=== PATIENT | male | born 1955 | race Caucasian/White ===

== ENCOUNTER 2019-08-01 21:44 | Emergency (ER) | payer MEDICARE, OTHER ==
[~2019-08-01] VITALS: Ht 167.6 cm; Wt 91.0 kg
[~2019-08-01 21:44] MED LIST: ALBU6.7H9 INH; ASPI-1265 PO; ATOR40TA PO; CARB200T2 PO; ESOM40CA49 PO; EZET10TA6 PO; FENO145T38 PO; METO-292 PO
[2019-08-01 21:46] VITALS: BP 158/81
[2019-08-01] MEDS ORDERED: COLC0.6T69 PO (22:26)
[2019-08-01] MEDS ORDERED: CEPH500C5 PO (22:26)
== END 2019-08-01 22:38 | disposition home or self-care (01) ==
LOC: ER 21:45
DX: M79.671 Pain in right foot (principal); J44.9 Chronic obstructive pulmonary disease, unspecified; Z86.69 Personal history of other diseases of the nervous system and sense organs; Z98.890 Other specified postprocedural states; Z79.82 Long term (current) use of aspirin; Z79.899 Other long term (current) drug therapy
CPT/HCPCS: 73630; 99283

== ENCOUNTER 2019-08-05 16:26 | Emergency (ER) | payer MEDICARE, OTHER ==
[~2019-08-05] VITALS: Ht 167.6 cm; Wt 91.0 kg
[~2019-08-05 16:26] MED LIST changes: +CEPH500C5 PO; +COLC0.6T69 PO; +LIDOcaine 1% w/EPI 1:100,000 30ml vial (MDV) ONE
[2019-08-05 16:45] VITALS: BP 172/98
[2019-08-05] MEDS ORDERED: SULF1TAB49 PO (17:22)
== END 2019-08-05 18:05 | disposition home or self-care (01) ==
LOC: ER 16:29
DX: L02.611 Cutaneous abscess of right foot (principal); L03.115 Cellulitis of right lower limb; J44.9 Chronic obstructive pulmonary disease, unspecified; Z86.69 Personal history of other diseases of the nervous system and sense organs; Z79.82 Long term (current) use of aspirin; Z79.899 Other long term (current) drug therapy
CPT/HCPCS: 10060; 99283

== ENCOUNTER 2024-02-02 03:21 | Emergency (ER) | payer MEDICARE, OTHER ==
[~2024-02-02] VITALS: Ht 167.6 cm; Wt 77.8 kg
[~2024-02-02 03:21] MED LIST changes: +ALBU6.7H14 INH; -ALBU6.7H9 INH; -CEPH500C5 PO; -COLC0.6T69 PO; +COLC0.6T72 PO; -LIDOcaine 1% w/EPI 1:100,000 30ml vial (MDV) ONE
[2024-02-02] MEDS ORDERED: sulfamethoxazole/trimethoprim SS (400mg/80mg) tab (single-strength) PO ONE (03:45)
[2024-02-02] MEDS: sulfamethoxazole/trimethoprim DS (800/160mg) tablet PO ONE (03:57)
[2024-02-02] MEDS: predniSONE 20 mg tablet PO ONE (03:59)
[2024-02-02] MEDS ORDERED: CEPH-585 PO (04:13)
[2024-02-02] MEDS ORDERED: ALBU8HFA INH (04:13)
[2024-02-02] MEDS ORDERED: PRED50TA PO (04:13)
[2024-02-02] MEDS ORDERED: SULF1TAB49 PO (04:13)
[2024-02-02] MEDS ORDERED: ALB0.5UD NEB (04:13)
[2024-02-02] MEDS: ipratropium/albuterol 3ml nebule NEB ONE (04:34)
[2024-02-02 04:36] VITALS: PULSE 85; RESP 16; O2SAT 96
[2024-02-02 04:41] VITALS: PULSE 89; RESP 18; O2SAT 96
[2024-02-02] MEDS ORDERED: HYDR-3965 PO (04:44)
[2024-02-02] MEDS: HYDROcodone/acetaminophen 5mg/325mg tablet PO ONE (05:00)
[2024-02-02 05:15] VITALS: BP 132/76; PULSE 78; RESP 16; TEMP 97.9; O2SAT 99
== END 2024-02-02 05:17 | disposition home or self-care (01) ==
LOC: ER 03:22
DX: J44.1 Chronic obstructive pulmonary disease with (acute) exacerbation (principal); M70.21 Olecranon bursitis, right elbow; Z79.899 Other long term (current) drug therapy; Z79.52 Long term (current) use of systemic steroids; Z79.2 Long term (current) use of antibiotics; Y93.89 Activity, other specified
CPT/HCPCS: 94640; 99284; J7512; Z7610

== ENCOUNTER 2024-04-13 19:00 | Emergency (ER) | payer MEDICARE, OTHER ==
[~2024-04-13] VITALS: Ht 167.6 cm; Wt 77.7 kg
[~2024-04-13 19:00] MED LIST changes: +PRED50TA PO
[2024-04-13 19:09] VITALS: BP 143/81; PULSE 89; O2SAT 95
[2024-04-13] MEDS: LIDOcaine 1% W/epiNEPHrine 1:100,000 20ml vial SQ ONE (20:43)
[2024-04-13 20:50] VITALS: RESP 16
[2024-04-13] MEDS: ketorolac trometh 15mg/ml vial 15 MG/ML ML IM ONE (20:50)
[2024-04-13] MEDS: HYDROcodone/acetaminophen 10/325mg tab PO ONE (20:50)
[2024-04-13] MEDS ORDERED: HYDR-3965 PO (20:57)
[2024-04-13 21:03] VITALS: TEMP 98.2
== END 2024-04-13 21:07 | disposition home or self-care (01) ==
LOC: ER 19:00
DX: M70.21 Olecranon bursitis, right elbow (principal); J44.9 Chronic obstructive pulmonary disease, unspecified; Z79.82 Long term (current) use of aspirin; Z79.899 Other long term (current) drug therapy; Y93.89 Activity, other specified
CPT/HCPCS: 20605; 96372; 99283; J1885; Z7610

== ENCOUNTER 2024-07-17 08:08 | Inpatient (IN) | payer MEDICARE, OTHER ==
[2024-07-17] VITALS (7 sets, daily range): BP systolic 139–162; BP diastolic 79–86; PULSE 72–93; RESP 16–20; TEMP 97.7–98.8; O2SAT 93–99
[~2024-07-17] VITALS: Ht 167.6 cm; Wt 83.2 kg
[2024-07-17 08:41] LABS: BASOPHILS # (AUTO) 0.1 X10'3 (0-0.2); BASOPHILS % (AUTO) 0.9 % (0-1); EOSINOPHILS # (AUTO) 0.3 X10'3 (0-0.9); EOSINOPHILS % (AUTO) 4.7 % (0-6); HEMOGLOBIN 15.5 g/dl (14.0-17.9); LYMPHOCYTES # (AUTO) 1.5 X10'3 (1.1-4.8); LYMPHOCYTES % (AUTO) 22.1 % (21-51); MEAN CORPUSCULAR HEMOGLOBIN 31.6 PG (27.0-31.0); MEAN CORPUSCULAR HGB CONC 33.8 g/dL (33.0-36.5); MEAN CORPUSCULAR VOLUME 93.7 FL (78-98); MEAN PLATELET VOLUME 7.1 FL (7.4-10.4); MONOCYTES # (AUTO) 0.6 X10'3 (0-0.9); MONOCYTES % (AUTO) 8.4 % (2-12); NEUTROPHILS # (AUTO) 4.4 X10'3 (1.8-7.7); NEUTROPHILS % (AUTO) 63.9 % (42-75); PLATELET COUNT 281 X10'3 (140-440); RED BLOOD COUNT 4.91 X10'6 (4.70-6.10); RED CELL DISTRIBUTION WIDTH 14.8 % (11.5-14.5); WHITE BLOOD COUNT 6.8 X10'3 (4.5-11.0)
[2024-07-17] MEDS ORDERED: methylPREDNISolone sod succ/PF 40mg inj. IV STA (08:49)
[2024-07-17 08:56] LABS: ALANINE AMINOTRANSFERASE 34 U/L (12-78); ALBUMIN 3.3 G/DL (3.4-5.0); ALBUMIN/GLOBULIN RATIO 0.8 (1.1-1.5); ALKALINE PHOSPHATASE 67 IU/L (46-116); ANION GAP 7 (8-16); ASPARTATE AMINO TRANSFERASE 27 U/L (10-37); BILIRUBIN,TOTAL 0.2 MG/DL (0.1-1.0); BLOOD UREA NITROGEN 19 MG/DL (7-18); CALCIUM 9.1 MG/DL (8.5-10.1); CHLORIDE 106 MMOL/L (99-107); CREATININE 0.76 MG/DL (0.60-1.10); GLUCOSE 124 MG/DL (70-104); POTASSIUM 3.9 MMOL/L (3.5-5.1); SODIUM 141 MMOL/L (135-145); TOTAL CARBON DIOXIDE 27.9 MMOL/L (24-32); TOTAL PROTEIN 7.3 G/DL (6.4-8.2); eCRCL 84 ML/MIN; eGFR > 90 ML/MIN
[2024-07-17] MEDS ORDERED: METHYLPREDNISOLONE SOD SUCC 125 MG/2ML INJ. IV STA (08:56)
[2024-07-17] MEDS: methylPREDNISolone sod succ 125mg/2ml vial IV STA (09:04)
[2024-07-17 09:05] LABS: PRO BRAIN NATRIURETIC PEPTIDE 333 PG/ML (0-125)
[2024-07-17] MEDS: ipratropium/albuterol 3ml nebule NEB ONE (09:08)
[2024-07-17] MEDS: CefTRIAXone/D5W-Rocephin 1gm 50 ML IV ONE (09:44)
[2024-07-17] MEDS: albuterol 2.5 MG/3 ML nebule NEB ONE (09:52)
[2024-07-17] MEDS ORDERED: OLME40TA18 PO (09:55)
[2024-07-17] MEDS: azithromycin/NS 500mg/250ml 250 ML IV ONE (10:12)
[2024-07-17] MEDS ORDERED: mag hydrox/Alum hydrox/simeth 30ml oral suspension PO PRN ×2 (10:30→12:55)
[2024-07-17] MEDS ORDERED: acetaminophen 325mg tablet PO PRN ×2 (12:55)
[2024-07-17] MEDS ORDERED: diphenhydrAMINE 25mg capsule PO PRN (12:55)
[2024-07-17] MEDS ORDERED: acetaminophen 650mg rectal suppository RC PRN (12:55)
[2024-07-17] MEDS ORDERED: morphine 2 MG/ML inj. syringe IV PRN ×2 (12:55)
[2024-07-17] MEDS ORDERED: diphenhydrAMINE 50 mg/ml inj IV PRN (12:55)
[2024-07-17] MEDS ORDERED: ondansetron/PF 4mg/2ml inj IV PRN (12:55)
[2024-07-17] MEDS ORDERED: bisacodyl 10mg suppository rectal RC PRN (12:55)
[2024-07-17] MEDS ORDERED: magnesium hydroxide 30ml (MOM) UD suspension PO PRN (12:55)
[2024-07-17] MEDS ORDERED: HYDROcodone/acetaminophen 5mg/325mg tablet PO PRN (12:55)
[2024-07-17] MEDS ORDERED: HYDROcodone/acetaminophen 10/325mg tab PO PRN (12:55)
[2024-07-17] MEDS ORDERED: ondansetron 4mg rapidly disintigrating tab PO PRN (12:55)
[2024-07-17] MEDS: normal saline 1000ml 1,000 ML IV SCH (13:13)
[2024-07-17 13:34] LABS: BILIRUBIN,URINE NEGATIVE (Neg); CLARITY,URINE CLEAR (Clear); COLOR,URINE YELLOW (Yellow); GLUCOSE, URINE 500 mg/dl (Neg); KETONES,URINE NEGATIVE (Neg); LEUKOCYTE ESTERASE ,URINE NEGATIVE (Neg); NITRITES, URINE NEGATIVE (Neg); OCCULT BLOOD,URINE NEGATIVE (Neg); PROTEIN,URINE NEGATIVE (Neg); UROBILINOGEN,URINE 0.2 E.U/dL (0.2-1.0)
[2024-07-17 13:38] LABS: UA COLLECTION TYPE CLN CATCH MIDSTREAM
[2024-07-17 13:45] LABS: URINE AMPHETAMINE SCREEN NEGATIVE (Neg); URINE BARBITUATE SCREEN NEGATIVE (Neg); URINE BENZODIAZEPINES SCREEN NEGATIVE (Neg); URINE CANNABINOID SCREEN NEGATIVE (Neg); URINE COCAINE SCREEN NEGATIVE (Neg); URINE METHADONE SCREEN NEGATIVE (Neg); URINE OPIATE SCREEN NEGATIVE (Neg); URINE PHENCYCLIDINE SCREEN NEGATIVE (Neg)
[2024-07-17 14:56] LABS: HEMOGLOBIN A1C 6.1 % (4.5-6.2)
[2024-07-17 15:28] LABS: APTT 26 SECONDS (22-32); D-DIMER < 0.19 MG/L FEU (0-0.50); PROTHROMBIN TIME 10.7 SECONDS (9.0-12.0)
[2024-07-17 15:44] LABS: CARBAMAZEPINE (TEGRETOL) 7.3 UG/ML (4.0-12.0); MAGNESIUM 1.7 MG/DL (1.5-2.4); PHOSPHORUS 2.5 MG/DL (2.3-4.5); THYROID STIMULATING HORMONE 0.63 ulU/ml (0.34-4.50)
[2024-07-17] MEDS: methylPREDNISolone sod succ 125mg/2ml vial IV ONE (15:57)
[2024-07-17] MEDS ORDERED: TIOT4MIS8 INH (19:11)
[2024-07-17] MEDS: K and/or MAG REPLACEMENT MC SCH (19:29)
[2024-07-17] MEDS: docusate sod 100mg capsule PO SCH (20:13)
[2024-07-17] MEDS: heparin, porcine 5000 units/ml vial SQ SCH (20:14)
[2024-07-17] MEDS ORDERED: temazepam 15mg capsule PO PRN (21:00)
[2024-07-18] VITALS (7 sets, daily range): BP systolic 142–148; BP diastolic 80–81; PULSE 65–79; RESP 14–21; TEMP 97.6–98; O2SAT 95–98
[2024-07-18 00:09] LABS: BASOPHILS % (AUTO) 0.5 % (0-1); EOSINOPHILS % (AUTO) 0.1 % (0-6); HEMATOCRIT 41.7 % (42.0-52.0); HEMOGLOBIN 14.2 g/dl (14.0-17.9); LYMPHOCYTES # (AUTO) 1.4 X10'3 (1.1-4.8); LYMPHOCYTES % (AUTO) 19.1 % (21-51); MEAN CORPUSCULAR HEMOGLOBIN 31.6 PG (27.0-31.0); MEAN CORPUSCULAR HGB CONC 34.1 g/dL (33.0-36.5); MEAN CORPUSCULAR VOLUME 92.9 FL (78-98); MEAN PLATELET VOLUME 7.4 FL (7.4-10.4); MONOCYTES # (AUTO) 0.5 X10'3 (0-0.9); MONOCYTES % (AUTO) 7.2 % (2-12); NEUTROPHILS # (AUTO) 5.5 X10'3 (1.8-7.7); NEUTROPHILS % (AUTO) 73.1 % (42-75); PLATELET COUNT 257 X10'3 (140-440); RED BLOOD COUNT 4.49 X10'6 (4.70-6.10); RED CELL DISTRIBUTION WIDTH 14.5 % (11.5-14.5); WHITE BLOOD COUNT 7.5 X10'3 (4.5-11.0)
[2024-07-18] MEDS: ipratropium/albuterol 3ml nebule NEB PRN (00:39)
[2024-07-18 01:52] LABS: BASOPHILS # (AUTO) 0.1 X10'3 (0-0.2); BASOPHILS % (AUTO) 0.8 % (0-1); EOSINOPHILS % (AUTO) 0.2 % (0-6); HEMOGLOBIN 14.3 g/dl (14.0-17.9); LYMPHOCYTES # (AUTO) 1.7 X10'3 (1.1-4.8); LYMPHOCYTES % (AUTO) 23.5 % (21-51); MEAN CORPUSCULAR HEMOGLOBIN 31.7 PG (27.0-31.0); MEAN CORPUSCULAR HGB CONC 34.1 g/dL (33.0-36.5); MEAN CORPUSCULAR VOLUME 92.9 FL (78-98); MEAN PLATELET VOLUME 7.4 FL (7.4-10.4); MONOCYTES # (AUTO) 0.8 X10'3 (0-0.9); MONOCYTES % (AUTO) 10.8 % (2-12); NEUTROPHILS # (AUTO) 4.7 X10'3 (1.8-7.7); NEUTROPHILS % (AUTO) 64.7 % (42-75); PLATELET COUNT 274 X10'3 (140-440); RED BLOOD COUNT 4.52 X10'6 (4.70-6.10); RED CELL DISTRIBUTION WIDTH 14.5 % (11.5-14.5); WHITE BLOOD COUNT 7.3 X10'3 (4.5-11.0)
[2024-07-18 02:19] LABS: ALANINE AMINOTRANSFERASE 33 U/L (12-78); ALBUMIN/GLOBULIN RATIO 0.8 (1.1-1.5); ALKALINE PHOSPHATASE 62 IU/L (46-116); ANION GAP 5 (8-16); ASPARTATE AMINO TRANSFERASE 24 U/L (10-37); BILIRUBIN,TOTAL 0.2 MG/DL (0.1-1.0); BLOOD UREA NITROGEN 17 MG/DL (7-18); CALCIUM 8.5 MG/DL (8.5-10.1); CHLORIDE 107 MMOL/L (99-107); CREATININE 0.68 MG/DL (0.60-1.10); GLUCOSE 127 MG/DL (70-104); POTASSIUM 3.6 MMOL/L (3.5-5.1); SODIUM 140 MMOL/L (135-145); TOTAL CARBON DIOXIDE 28.5 MMOL/L (24-32); TOTAL PROTEIN 6.6 G/DL (6.4-8.2); eCRCL 94 ML/MIN; eGFR > 90 ML/MIN
[2024-07-18 02:21] LABS: CHOLESTEROL 122 MG/DL (0-200); HDL CHOLESTEROL 62 MG/DL (35-60); LDL CHOLESTEROL 64 MG/DL (50-100); TRIGLYCERIDES 136 MG/DL (20-135)
[2024-07-18] MEDS: TIOTROPIUM IH SCH (08:00)
[2024-07-18] MEDS: OLODATEROL IH SCH (08:00)
[2024-07-18] MEDS: losartan 50mg tablet PO SCH (08:00)
[2024-07-18] MEDS: [UNRECOGNIZED DRUG - OTHER] IH SCH (08:00)
[2024-07-18] MEDS: pantoprazole 40mg Tablet.DR PO SCH (09:12)
[2024-07-18] MEDS: ezetimibe 10mg tablet PO SCH (09:13)
[2024-07-18] MEDS: aspirin 81mg tab.chew PO SCH (09:13)
[2024-07-18] MEDS: fenofibrate 145mg tablet PO SCH (09:14)
[2024-07-18] MEDS: atorvastatin 20mg tablet PO SCH (09:14)
[2024-07-18] MEDS: CefTRIAXone/D5W-Rocephin 1gm 50 ML IV SCH (09:16)
[2024-07-18] MEDS: nicotine 21mg patch - 24 hr TD SCH (09:17)
[2024-07-18] MEDS: azithromycin/NS 500mg/250ml 250 ML IV SCH (10:00)
[2024-07-18] MEDS: carBAMazepine Ext. Release 200 MG TAB.ER.12H PO SCH (10:00)
[2024-07-18] MEDS ORDERED: AZIT500T PO (13:45)
[2024-07-18] MEDS ORDERED: PRED10TA23 PO (13:45)
== END 2024-07-18 14:50 | disposition home or self-care (01) | DRG 202 ==
LOC: ER 08:08 → ED HOLD 10:28 → SUR 3N 13:54
PROVIDERS: ADMIT Family Medicine; ATTEND Family Medicine
DX: J20.9 Acute bronchitis, unspecified (principal); J44.0 Chronic obstructive pulmonary disease with (acute) lower respiratory infection; J44.1 Chronic obstructive pulmonary disease with (acute) exacerbation; I10 Essential (primary) hypertension; E78.5 Hyperlipidemia, unspecified; G40.909 Epilepsy, unspecified, not intractable, without status epilepticus; G47.33 Obstructive sleep apnea (adult) (pediatric); Z79.82 Long term (current) use of aspirin; Z79.899 Other long term (current) drug therapy; Z72.0 Tobacco use
CPT/HCPCS: 36415; 71046; 80053; 80061; 80156; 80305; 81003; 83036; 83605; 83735; 83880; 84100; 84443; 84484; 85025; 85379; 85610; 85730; 87040; 87081; 93005; 93306; 94640; 94664; 94760; 99291; G0378; J0456; J0696; J1644; J2919; J7030

== ENCOUNTER 2025-01-29 10:37 | Emergency (ER) | payer MEDICARE, OTHER ==
[~2025-01-29] VITALS: Ht 167.6 cm; Wt 85.6 kg
[~2025-01-29 10:37] MED LIST changes: -ALBU6.7H14 INH; -COLC0.6T72 PO; -ESOM40CA49 PO; -METO-292 PO; +OLME40TA18 PO; -PRED50TA PO; +TIOT4MIS8 INH
--- NOTE | 2025-01-29 11:15 | Physician Documentation ---
History of Present Illness ~ Chief Complaint: Leg Pain Stated Complaint: LEG PAIN Time Seen by MD: 10:45 Primary Medical Doctor: Everette Bartholomew Source: patient Mode of Arrival: POV Exam Limitations: no limitations HPI Chief Complaint: Bilateral lower extremity pain Caveat: None Independent Historians: None History of Present Illness: Patient is a 69-year-old man who comes in complaining of severe constant bilateral lower extremity pain that began Sunday after bending over and developing some low back pain. Patient was stacking wood. Patient states that this has happened once in the past and the cause was never found in lasted 90-100 days. Pain in the right lower extremity is from the right low back, hip and down the entire extremity. Pain in the left lower extremity is from the knee down. Pain is When the patient stands he develops paresthesias and numbness in the left thigh. Patient denies any bowel incontinence. No urinary incontinence, no urinary retention. Patient denies any numbness in the perineal area. Review of systems: All systems were reviewed and are negative except for what is indicated in the history of present illness. Past Medical History: HTN, HLD, epilepsy Past Surgical History: Noncontributory Social History: Tobacco use, denies alcohol use, denies drug use Medications: Reviewed as documented Nursing Notes Allergies: Reviewed as documented in Nursing Notes Jensen herbert 5 years: Yes Medication Reconciliation Allergies: Coded Allergies: No Known Allergies (Unverified , 01/29/25) Scheduled Aspirin (Aspirin), 1 TAB.CHEW PO DAILY, (Reported) Atorvastatin Calcium* (Lipitor*), 2 TAB PO DAILY, (Reported) Carbamazepine (Tegretol Xr), 2 TAB PO Q12H, (Reported) Ezetimibe (Zetia), 10 MG PO DAILY, (Reported) Fenofibrate Nanocrystallized (Tricor), 1 TAB PO DAILY, (Reported) Olmesartan Medoxomil (Olmesartan Medoxomil), 1 TAB PO DAILY, (Reported) Tiotropium Br/Olodaterol HCl (Stiolto Respimat Inhaler (10)), 60 MCG INH DAILY, (Reported) Past Medical History Past Medical History: Seizures, COPD Past Surgical History: other Patient History: FH: heart attack FATHER, MOTHER FH: heart disease FATHER, MOTHER Other Past Family History: noncontributory Alcohol Use: None Drug Use: none Lives with: Family Occupation: employed, retired Review of Systems All Other Systems at this time: Reviewed and Negative ROS Patient denies any other acute symptoms other than above. All other systems are negative Physical Exam Vital Signs: RN Vital Signs have been reviewed: Yes, Temperature: 98.7, Source: Temporal, Heart Rate: 91, Respiratory Rate: 20, BP: 151/96, Pulse Oximetry: 95, Weight: 85.600 Pulse Oximetry Reflects: adequate oxygenation Physical Exam General Appearance: Mild distress HEENT: Normal OP, moist oral mucosa, PERRL, EOMI Neck: supple, normal ROM, trachea midline Pulmonary: No respiratory distress, CTA, BS equal Cardiac: RRR, no murmur, rub or gallop, GI: nondistended, soft, nontender, normal bowel sounds, no guarding, no rebound Back: Outwardly normal-appearing, no focal tenderness Extremities: normal ROM, no swelling, non-tender, Skin: intact, dry, warm, no rashes Neuro: AAOx3, speech is clear, no focal motor weakness, dorsiflexion plantar flexion 5/5 bilaterally, hip flexion is 5/5 bilaterally, knee extension 5/5 bilaterally Psych: normal affect, good eye contact, no apparent hallucination, normal speech Progress Results/Orders Results/Orders Orders - ROSE GOMEZ MD Mri Lumbar Spine (01/29/25 15:00) Completed Orders - ROSE GOMEZ MD Ketorolac Trometh 15mg/Ml Vial (Toradol (01/29/25 11:10) Mri Lumbar Spine (01/29/25 15:00) Hydrocodone/Apap 10/325 (Valier 10/325mg (01/29/25 15:55) Medications Received in ER Medications (Trade) Dose Ordered Sig/Rosa Route PRN Reason Start Time Stop Time Status Last Admin Dose Admin (Toradol injection) 15 mg ONCE ONCE IM 01/29/25 11:10 01/29/25 11:21 DC 01/29/25 11:26 15 MG (Valier 10/325mg tab) 1 tab ONCE ONCE PO 01/29/25 15:55 01/29/25 15:56 DC 01/29/25 16:10 1 TAB Vital Signs 01/29/25 01/29/25 01/29/25 01/29/25 10:40 10:48 11:26 11:42 Temp 98.7 98.7 Pulse 91 86 Resp 20 16 15 B/P (MAP) 151/96 153/94 (113) Pulse Ox 95 98 01/29/25 01/29/25 01/29/25 01/29/25 12:37 13:29 15:44 16:10 Temp 98.7 98.7 98.7 Pulse 85 75 88 Resp 16 18 18 18 B/P (MAP) 140/82 (101) 140/85 (103) 167/107 (127) Pulse Ox 95 98 96 Medical Decision Making Findings Differential diagnosis includes but is not limited to: Spinal stenosis, cauda equina syndrome, herniated discs, neural foraminal stenosis MRI lumbar spine without IV contrast, indication: Lower extremity pain and paresthesias, low back pain Impression: 1. 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 2. At L4-5 and L5-S1 narrowing of the right neural foramina by bulging disc and osteophytes with possible effacement of the exiting right-sided nerve roots Emergency department course/medical decision-making: Patient presents with severe bilateral lower extremity pain but without weakness or neurological findings. MRI of the lumbar spine shows L4-S1 narrowing of the right neural foramina. This is likely the cause for his pain. Patient isn't exhibiting any weakness in those dermatomes. Patient is going to be instructed to follow up with his primary care doctor for referral to a point of care specialist. Patient will be given Valier and Motrin for pain. Test results and treatment plan reviewed with the patient. Departure Time of Disposition: 17:53 Disposition: HOME / SELF CARE / HOMELESS Impression: Primary Impression: Neuropathic pain Additional Impressions: L4-L5 neuroforaminal narrowing L5-S1 neuroforaminal narrowing Condition: Stable Discharge Instructions: Neuropathic Pain Additional Instructions: YOU NEED TO FOLLOW UP WITH YOUR PRIMARY CARE DOCTOR FOR REFERRAL TO A [facility]. RETURN TO THE ER IF YOUR SYMPTOMS WORSEN OR IF YOU DEVELOP ANY SUDDEN WEAKNESS IN ONE LEG OR THE OTHER. RETURN TO THE ER IF YOU DEVELOP ANY BOWEL INCONTINENCE OR INABILITY TO URINATE. Prescriptions Orphenadrine Citrate (Norflex) 100 Mg Tablet.sa 1 TAB PO BID PRN for pain, #20 TAB 0 Refills Prov: ROSE GOMEZ MD 01/29/25 Hydrocodone Bit/Acetaminophen (Hydrocodone-Apap 10-325 Tablet) 10mg/325mg Tablet 1 TAB PO TID PRN PRN for pain for 5 Days, #15 TAB Prov: ROSE GOMEZ MD 01/29/25 Education Educated: Patient Educated regarding: diagnosis, treatment, need for follow up Signature Scribe Signature: No scribe Attestation: No scribe ROSE GOMEZ MD Jan 29, 2025 11:15
[2025-01-29] MEDS: ketorolac trometh 15mg/ml vial 15 MG/ML ML IM ONE (11:26)
[2025-01-29] MEDS: HYDROcodone/acetaminophen 10/325mg tab PO ONE (16:10)
--- NOTE | 2025-01-29 17:38 | RADIOLOGY REPORT ---
MR lumbar spine HISTORY: neuropathic pain and paresthesias in lower extremities TECHNIQUE: MR was performed with a surface coil at 1.5 T magnet. Sagittal, axial and coronal T1 and T 2-weighted images were obtained. FINDINGS: Lumbar vertebrae normal in height signal intensity and alignment L1-2 no narrowing of the central canal and neural foramina L2-3 no narrowing of the central canal and neural foramina L3-4 loss of disc height and signal intensity. 2 mm retrolisthesis due to degenerative facet joint di sease. L4-5 loss of disc height and signal intensity. Broad-based 3-4 mm rightward disc bulge or protrusion effaces the thecal sac and narrows the right neural foramen. There may be effacement of the exiting r ight L4 nerve root. L5-S1 loss of disc height and signal intensity. Narrowing of the right neural foramen by shortened pe dicles bulging disc and osteophytes with possible effacement of the exiting right L5 nerve root Cord ends at T12-L1 and is normal in appearance IMPRESSION: 1. 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 2. At L4-5 and L5-S1 narrowing of the right neural foramina by bulging disc and osteophytes with poss ible effacement of the exiting right-sided nerve roots
[2025-01-29] MEDS ORDERED: ORPH100T4 PO (17:57)
[2025-01-29] MEDS ORDERED: HYDR-3973 PO (17:57)
[2025-01-29 18:05] VITALS: BP 144/82; PULSE 91; RESP 16; TEMP 98.7; O2SAT 95
== END 2025-01-29 18:06 | disposition home or self-care (01) ==
LOC: ER 10:37
DX: M48.061 Spinal stenosis, lumbar region without neurogenic claudication (principal); E78.5 Hyperlipidemia, unspecified; I10 Essential (primary) hypertension; J44.9 Chronic obstructive pulmonary disease, unspecified; Z79.82 Long term (current) use of aspirin
CPT/HCPCS: 72148; 96372; 99285; J1885

== ENCOUNTER 2025-03-25 05:39 | Emergency (ER) | payer MEDICARE, OTHER ==
[~2025-03-25] VITALS: Ht 167.6 cm; Wt 83.6 kg
[~2025-03-25 05:39] MED LIST changes: +ORPH100T4 PO
[2025-03-25] MEDS ORDERED: CEPH-585 PO (06:31)
[2025-03-25] MEDS ORDERED: SULF1TAB49 PO (06:31)
--- NOTE | 2025-03-25 06:32 | Physician Documentation ---
History of Present Illness ~ Chief Complaint: Abscess Stated Complaint: MRSA ON ARM Time Seen by MD: 06:05 Primary Medical Doctor: Everette Bartholomew HPI 69 year old male with L elbow swelling over the olecranon. Reports a history of abscesses to his elbows which have been drained and/or required antibiotics. Denies fever, N/V/D. Tetanus Within 5 Years: Yes Medication Reconciliation Allergies: Coded Allergies: No Known Allergies (Unverified , 01/29/25) Scheduled Aspirin (Aspirin), 1 TAB.CHEW PO DAILY, (Reported) Atorvastatin Calcium* (Lipitor*), 2 TAB PO DAILY, (Reported) Carbamazepine (Tegretol Xr), 2 TAB PO Q12H, (Reported) Ezetimibe (Zetia), 10 MG PO DAILY, (Reported) Fenofibrate Nanocrystallized (Tricor), 1 TAB PO DAILY, (Reported) Olmesartan Medoxomil (Olmesartan Medoxomil), 1 TAB PO DAILY, (Reported) Tiotropium Br/Olodaterol HCl (Stiolto Respimat Inhaler (10)), 60 MCG INH DAILY, (Reported) Scheduled PRN Orphenadrine Citrate (Norflex), 1 TAB PO BID PRN for pain Past Medical History Past Medical History: Seizures, COPD Past Surgical History: other Patient History: FH: heart attack FATHER, MOTHER FH: heart disease FATHER, MOTHER Other Past Family History: noncontributory Alcohol Use: None Drug Use: none Lives with: Family Occupation: employed, retired Review of Systems All Other Systems at this time: Reviewed and Negative Physical Exam Vital Signs: RN Vital Signs have been reviewed: Yes, Temperature: 98.2, Heart Rate: 85, Respiratory Rate: 20, BP: 141/83, Pulse Oximetry: 93, Weight: 83.640 Oxygen Flow Rate: 0 Physical Exam HEENT: PERRL, moist oral mucosa, EOMI Pulmonary: No respiratory distress MSK: no deformity Skin: w/d/i, no rash; L elbow with 4cm swelling which is mildly fluctuant, warm, no induration or purulence Neuro: alert, nonfocal Psych: normal affect Progress Results/Orders Results/Orders Vital Signs 03/25/25 05:48 Temp 98.2 Pulse 85 Resp 16 B/P (MAP) 148/78 Pulse Ox 94 O2 Flow Rate 0 Medical Decision Making Findings 69 year old male with L elbow swelling. Attempted needle aspiration but this did not return any purulent material at all, only a small amount of blood. Elected t o provide antibiotics and return precautions. Not clear that this lesion represents an abscess given it's lack of tenderness, induration. Differential Dx:Considerations: Include: Abscess, Cellulitis, Lymphangitis Additional Comment ddx includes bursitis and gout tophus Departure Disposition: 01 HOME / SELF CARE / HOMELESS Impression: Primary Impression: Cellulitis and abscess of upper extremity Condition: Stable Discharge Instructions: Abscess, Care After Referrals: NO PRIMARY CARE PROVIDER (PCP) Prescriptions Cephalexin*Monohydrate* (Keflex*) 500 Mg Capsule 1 CAP PO QID, #28 CAP Prov: FELIBERTO DARLING MD 03/25/25 Sulfamethoxazole/Trimethoprim (Bactrim Ds Tablet) 800 Mg-160 Mg Tablet 1 TAB PO Q12H for 7 Days, #14 TAB Prov: FELIBERTO DARLING MD 03/25/25 Education Educated: Patient Educated regarding: diagnosis, treatment, prognosis, need for follow up Signature Scribe Signature: . Attestation: . FELIBERTO DARLING MD Mar 25, 2025 06:32
[2025-03-25 07:16] VITALS: BP 142/81; PULSE 82; RESP 18; TEMP 98.2; O2SAT 93
== END 2025-03-25 06:52 | disposition home or self-care (01) ==
LOC: ER 05:40
DX: L02.414 Cutaneous abscess of left upper limb (principal); L03.114 Cellulitis of left upper limb; J44.9 Chronic obstructive pulmonary disease, unspecified; Z79.82 Long term (current) use of aspirin; Z79.899 Other long term (current) drug therapy
CPT/HCPCS: 99284